=== PATIENT | female | born 1990 | race Caucasian/White ===

== ENCOUNTER → 2019-03-16 14:10 | Outpatient (CLI) | payer OTHER, SELFPAY ==
--- NOTE | 2019-03-16 | DI.US.S_ITS ---
PROCEDURE: US OB <= 14 WEEKS FETUS INDICATIONS: SIZE AND DATES OUTSIDE/PRIOR DATING DATA: Last menstrual period (LMP): 01/25/19. LMP-based estimated date of delivery (ARLYN): 11/01/19. First dating scan (date and location): 03/16/19. Estimated date of delivery (ARLYN) from first dating scan: 10/27/19. TECHNIQUE: Real-time scanning was performed of the fetus and maternal pelvic organs, with image documentation. Endovaginal scanning was also performed to better visualize the fetus and maternal ovaries. COMPARISON: None. FINDINGS: Embryo: [place]-rump length measures 15 mm corresponding to 7 weeks 6 days. heart rate measured 160 beats per minute. Measurement variability in dating: +/- 4 weeks by LMP, +/- 7 days by mean sac diameter (use before 6 weeks gestation if crown-rump length not able to be measured), +/- 5 days by crown-rump length (up to 8 weeks 6 days gestation), +/- 7 days by crown-rump length (up to 13 weeks 6 days gestation). Maternal organs: Ovaries within normal limits, with right corpus luteal cyst. Limited images through the kidneys demonstrate no hydronephrosis. IMPRESSION: 7 week 6 day single living IUP. Dictated by: Rayray LIMON Interpreted: Jadyn Waldrop MD on 03/16/2019 at 15:31 Approved by: Jadyn Waldrop M.D. on 03/16/2019 at 16:34
== END ==
PROVIDERS: Family Provider Family Medicine; PCP Family Medicine; Visit Provider Family Medicine
DX: Z34.91 Encounter for supervision of normal pregnancy, unspecified, first trimester (principal); Z3A.01 Less than 8 weeks gestation of pregnancy
CPT/HCPCS: 76801

== ENCOUNTER → 2019-06-07 11:01 | Outpatient (CLI) | payer OTHER, MEDICAID, SELFPAY ==
--- NOTE | 2019-06-07 | DI.US.S_ITS ---
PROCEDURE: US OB >= 14 WEEKS FETUS INDICATIONS: 20 WEEK ANATOMICAL SURVEY OUTSIDE/PRIOR DATING DATA: Last menstrual period (LMP): 01/25/19. LMP-based estimated date of delivery (ARLYN): 11/01/19. First dating scan (date and location): 03/16/19. Estimated date of delivery (ARLYN) from first dating scan: 10/27/19. TECHNIQUE: Real-time scanning was performed of the fetus, with image documentation and biometric measurements. Endovaginal scanning: No COMPARISON: [facility], OB <= 14 WEEKS FETUS, 03/16/2019, 14:21. FINDINGS: General: A single living intrauterine gestation is present. Presentation: Breech. Placenta: Placental position is posterior, without previa. Amniotic fluid index: 12.6 cm, normal range is 5-24 cm. heart rate: 147 beats per minute. Maternal cervical canal: 3.7 cm long. Normal lower limit is 2.5 cm. biometrics: Biparietal diameter: 18 weeks 6 days Head circumference: 18 weeks 6 days Abdominal circumference: 20 weeks 2 days Femur length: 19 weeks corres Estimated gestational age from initial scan: 19 weeks 5 days Composite gestational age from present scan: 19 weeks 3 days Estimated weight and percentile: 313 g; 52nd percentile Measurement variability for biometric dating: +/- 7 days from 14 weeks to 15 weeks 6 days gestation, +/- 10 days from 16 weeks to 21 weeks 6 days gestation, +/- 2 weeks from 22 weeks to 27 weeks 6 days gestation, +/- 3 weeks for 28 weeks gestation or later. weight reference: 4500 g or EFW >90/95% is considered macrosomia or large for gestational age. EFW <10% is small for gestational age. EFW 5% or less is considered intra-uterine growth restriction. Anatomic survey: Neuro: Ventricles are non-dilated at less than 10 mm. Cisterna magna is normal at 3-11 mm. Cerebellum is normal in size and morphology. Nuchal skin fold: Normal at less than 6 mm between 14-21 weeks gestational age. Face: Nose and lips, facial profile are normal. Spine: No evidence for spina bifida. Heart: 4-chambered heart is present, with normal ventricular outflow tracts. Diaphragm: Diaphragm is intact. Stomach: Left-sided stomach is present. Kidneys: No hydronephrosis. Normal is less than 5 mm in 2nd trimester, less than 7 mm in 3rd trimester. Cord: 3-vessel cord has orthotopic insertion. Bladder: Normal in size. Extremities: All 4 extremities identified. IMPRESSION: 1. Single living IUP redemonstrated interval growth is normal. 2. Normal anatomic survey. Dictated by: Rayray Freeman [facility] Interpreted: Martine Ventura MD on 06/07/2019 at 16:41 Approved by: Martine Ventura MD, PhD on 06/07/2019 at 17:12
== END ==
PROVIDERS: PCP Family Medicine; Visit Provider Family Medicine
DX: Z36.89 Encounter for other specified antenatal screening (principal); Z3A.19 19 weeks gestation of pregnancy
CPT/HCPCS: 76811

== ENCOUNTER → 2019-10-09 17:11 | Outpatient (ROUT) | payer OTHER, MEDICAID, SELFPAY | PROVIDERS: PCP Family Medicine; Visit Provider Family Medicine | DX: Z34.80 Encounter for supervision of other normal pregnancy, unspecified trimester (principal) | CPT/HCPCS: 87081 ==

== ENCOUNTER 2019-10-20 01:52 | Inpatient (IN) | payer OTHER, MEDICAID, SELFPAY ==
[2019-10-20 04:20] LABS: Add Manual Diff / Slide Review NO; Basophils Absolute Auto 100 /uL (0-100); Basophils Percent Auto 0.7 % (0-2); Eosinophils Absolute Auto 0 /uL (0-450); Eosinophils Percent Auto 0.4 % (2-4); Hematocrit 31.2 % (36-46); Hemoglobin 10.7 g/dL (12.0-16.0); Lymphocytes Absolute Auto 1600 /uL (1100-4500); Lymphocytes Percent Auto 20.6 % (25-40); Mean Corpuscular HGB Conc 34.2 % (30-36); Mean Corpuscular Hemoglobin 28.2 PG (26-34); Mean Corpuscular Volume 82.4 fL (80-100); Monocytes Absolute Auto 500 /uL (0-900); Monocytes Percent Auto 6.5 % (3-14); Neutrophils Absolute Auto 5700 /uL (1500-7000); Neutrophils Percent Auto 71.8 % (50-75); Platelet Count 85 X10^3/uL (150-400); Red Blood Cell Count 3.78 X10^6/uL (4.0-5.2); Red Cell Distribution Width 14.3 % (11.6-14.8); White Blood Cell Count 7.9 X10^3/uL (4.5-11.0)
[2019-10-20] MEDS: fentaNYL 100 MCG/2 ML INJ IV ×2 (04:26→05:48)
[2019-10-20] MEDS: LACTATED RINGERS 1,000 ML 100 ML IV ×3 (04:26→08:20)
[2019-10-20 04:35] VITALS: BP 89/51
[2019-10-20 07:24] LABS: COVID19 -Nasal RAPID Negative (Negative)
[2019-10-20] MEDS: OXYTOCIN PREMIX 30 UNIT/500 ML PLAST..BAG IV (09:24)
--- NOTE | 2019-10-20 09:30 | PM.OBPNLAB ---
Date/Time Date Patient Seen: 10/20/19 Time Patient Seen: 09:30 Pain Control Pain control: epidural Pelvic Exam Dilation (cm): 7 Effacement (%): 90 station: -2 Amniotic membrane status: Bulging Comments: AROM clear at 920 Contractions Date/Time contractions began: 10/19/19 at 2100 Contractions on admission: regular Monitor mode: External Contraction frequency (min): 3 Contraction pattern: Irregular Contraction intensity: Moderate Status status: Category l Heart Rate Baseline: 140 Monitor Accelerations: Present Monitor Decelerations: Absent Monitor Variability: Moderate Assessment and Plan Assessment: active labor Plan: begin patient augmentation Comments: uterine ctx spaced out with epidural will add pitocin arom clear at 920am GBS negative Covid negative Rh positive
[2019-10-20] MEDS: ACETAMINOPHEN 325 MG TABLET 650 MG PO (11:36)
--- NOTE | 2019-10-20 11:57 | PM.OBPNLAB ---
Pelvic Exam Dilation (cm): 7 Effacement (%): 90 station: -2 Amniotic membrane status: Bulging Contractions Monitor mode: External Contraction frequency (min): 3 Contraction pattern: Irregular Contraction intensity: Moderate Status status: Category l
--- NOTE | 2019-10-20 11:58 | PM.OBPNLAB ---
Date/Time Date Patient Seen: 10/20/19 Time Patient Seen: 11:58 Pain Control Pain control: epidural Comments: some sacral pain Pelvic Exam Dilation (cm): 9 Effacement (%): 100 station: -1 Amniotic membrane status: Ruptured Contractions Contractions on admission: regular Monitor mode: External Pitocin rate (mU/min): 0 Contraction frequency (min): 3 Contraction pattern: Regular Contraction intensity: Strong/Firm Status status: Category l Heart Rate Baseline: 135 Monitor Accelerations: Present Monitor Decelerations: Variable Monitor Variability: Moderate Assessment and Plan Assessment: active labor Plan: continuous present management Comments: once complete will begin pushing A positive GBS neg covid negative
--- NOTE | 2019-10-20 13:54 | PM.OBPRVD ---
Labor & Delivery Delivery date: 10/20/19 Intrapartal events: None Cervical ripening method: none Induction method: none Delivery augmentation: rupture of membranes and pitocin Delivery monitor: external FHT Route of delivery: L&D Laceration Description: Perineal - 2nd Degree Delivery repair: chromic Estimated blood loss (mL): 300 Anesthesia type: Epidural Narrative: Identifying data: 29-year-old at 30-,1/7 weeks estimated gestational age based on an EDC of 11/01/2019 based on LMP and confirmed by 7 week ultrasound presents to labor and delivery with spontaneous onset of uterine contractions approximately 5 hours prior to presentation. Patient was found to be 2 cm dilated 90% effaced. She was admitted for early labor. She had unremarkable . Stage I lasted 5 hours and 50 minutes Patient was admitted to the hospital she was given IV fentanyl a couple doses and then had progressive uterine contractions and cervical change in at 6 cm dilation at 6:20 a.m. this morning she was felt to be in active labor and requesting epidural. Epidural was placed and provided adequate analgesia. At approximately 9:20 a.m. artificial rupture membranes was performed to augment labor as the epidural had spaced out the uterine contractions and there was concern for possible occiput posterior. Rupture membranes was 3 hours and 43 minutes prior to delivery was clear fluid. Patient was comfortable with epidural though did require boluses and did have persistent tailbone or sacral pain that we were not able to completely alleviate. Patient was started on Pitocin but maximum was 1 mm and this was debrided. Because her contractions a 1 minutes. Therefore it Pitocin was discontinued. Had external tocometer was used throughout stage I. External heart monitor was used in showed baseline the 140s with accelerations to 170s 180s with moderate variability and only an occasional brief area Almaraz deceleration. With repositioning large amount of amniotic fluid were obtained. This was throughout stage I. [place] catheter was removed prior to beginning pushing. Patient had adequate urine output Stage II lasted 45 minutes Patient was noted to be complete at 12:15 p.m.. This was after having anterior lip for an hour or so. She was position from side to side with a peanut ball and finally went to complete. We began pushing at 12:18 p.m.. Patient pushed on her left side and then was switched to her right side to push and then was playing left lateral with a wedge and made good progress be bringing the baby down. She could feel her contractions coming and was able to alert us they were every 2-3 minutes. External heart monitor was 3 used throughout this stage in again baseline 130s with accelerations with contractions to the 170s 180s and moderate variability. Category 1 tracing. Baby was delivered in the left occiput anterior position. Mom was able to let the baby's head sit on her perineum. heart tracing continued to be category 1 even with this. Once the head was delivered the anterior shoulder was easily delivered and the posterior shoulder without difficulty and then the remainder of the baby and baby was placed on mom's chest. Baby was vigorous at delivery with Apgars of 9 at 1 minute and 9 at 5 minute. Weight is still pending. Stage III lasted 14 minutes Normal spontaneous vaginal delivery of a mild to moderately calcified placenta with a central cord insertion. Two arteries and having present. There was a small amount of amniotic membranes protruding from the cervix and these were easily removed. Pitocin was run in its soon as placenta started coming. Estimated blood loss was 300 cc. Uterus quickly firmed up. There were no vaginal or cervical tears. There was a small second-degree tear. There were no periurethral are labial tears. The second-degree tear was repaired in the usual fashion. At the time this dictation both mom and baby are in stable condition Plan for aftercare: routine care support gbs negative covid negative A positive
--- NOTE | 2019-10-20 15:00 | PM.OBHP.1 ---
OB HPI History of Present Condition Chief complaint: EVAL OF LABOR Narrative: Sugey Fajardo is a 29 year old female is a very pleasant at 3817 weeks estimated gestational age with the EDC of 11/01/2019 based on LMP and 10/27/2019 based on 7 week ultrasound. was unremarkable. Patient was actually seen in the office on the day that she went into labor. Patient presented to labor and delivery at 2:00 a.m. on 10/20/2019 with complaints of painful uterine contractions that were worsening that had started at 9:00 p.m. on 10/19/2019. No leaking of fluid and no change in discharge. Baby has been active. No abdominal pain. No foul-smelling discharge. No fever. No headaches. She has had slight swelling just over the last few days. Past medical history: 1. Migraine with aura 2. Anxiety 3. Thrombocytopenia of unclear etiology Current medications vitamins Allergies: No known drug allergies Past surgical history: Unremarkable Health-related behavior Patient does not use alcohol or tobacco. Patient does not use any illicit drugs. Family history: Mom with hypothyroidism and anxiety No congenital problems Sister may have inflammatory bowel disease Review of systems: No foul spine discharge. No fever No cough Baby has been active Contractions starting at 9:00 p.m. on 10/19/2019 Patient has had reflux throughout Past OB history 1. 08/24/2015 at 39 weeks gestation after 12 hour labor patient had a normal spontaneous vaginal delivery of a viable male infant weighing 6 lb 14 oz name hold in care was begun early on. Patient gained approximately 20 lb. Patient had about 12 visits. Blood pressures were always in the 80s to 94/40 4-62 Patient declines a clinical screening. Twenty week ultrasound showed normal anatomy GBS negative A positive, rubella immune Co bit test negative on admit Patient declined tetanus shot. Flu shot 05/02/2019. Glucose tolerance test 95. HIV GC chlamydia hepatitis B hepatitis-C syphilis all negative. Pap in HPV negative Evaluation Evaluation Laboratory results: Laboratory Tests 10/20/19 10/20/19 10/20/19 04:00 04:15 04:15 WBC 7.9 RBC 3.78 L Hgb 10.7 L Hct 31.2 L MCV 82.4 MCH 28.2 MCHC 34.2 RDW 14.3 Plt Count 85 L Neut % (Auto) 71.8 Lymph % (Auto) 20.6 L [place] % (Auto) 6.5 Eos % (Auto) 0.4 L Baso % (Auto) 0.7 Neut # (Auto) 5700 Lymph # (Auto) 1600 [place] # (Auto) 500 Eos # (Auto) 0 Baso # (Auto) 100 COVID-19 PCR Negative Blood Type A Positive Antibody Screen Negative [facility] Social History Smoking Status: Never smoker Meds Home Medications and Allergies Home Medications Medication Instructions Recorded Confirmed Type No Known Home Medications 10/20/19 10/20/19 History Allergies Allergy/AdvReac Type Severity Reaction Status Date / Time No Known Drug Allergies Allergy Verified 10/20/19 10:11 Review of Systems Review of Systems Narrative: Review of systems negative other than HPI Exam Vital Signs (past 8 hours): Afebrile vital signs are stable Patient is resting comfortably in hospital bed in no apparent distress HEENT unremarkable Neck: Supple without adenopathy Chest: Clear to auscultation without wheezes rhonchi or crackles Cor: Regular rate and rhythm without murmur Abdomen: Positive bowel sounds, gravid, vertex, estimated weight 6 and half to 7 lb Cervix 7 cm 90% effaced -2 station with intact bag of water that was artificially ruptured at 9:20 a.m. with clear fluid Extremities: Trace edema. DTRs intact Uterine contractions every 2-3 minutes with some coupling heart tone with baseline 140s with moderate variability with accelerations 10 160s 170s. Overall category 1 tracing Objective Labs Result Diagrams: 10/20/19 04:15 Labs: Laboratory Results - last 24 hr 10/20/19 10/20/19 10/20/19 04:00 04:15 04:15 WBC 7.9 RBC 3.78 L Hgb 10.7 L Hct 31.2 L MCV 82.4 MCH 28.2 MCHC 34.2 RDW 14.3 Plt Count 85 L Neut % (Auto) 71.8 Lymph % (Auto) 20.6 L [place] % (Auto) 6.5 Eos % (Auto) 0.4 L Baso % (Auto) 0.7 Neut # (Auto) 5700 Lymph # (Auto) 1600 [place] # (Auto) 500 Eos # (Auto) 0 Baso # (Auto) 100 COVID-19 PCR Negative Blood Type A Positive Antibody Screen Negative Assessment and Plan Assessment and Plan Assessment and Plan narrative: 29-year-old at 38-,1/7 weeks estimated gestational age in active labor with epidural providing adequate anesthesia. AROM performed clear fluid. Will augment with Pitocin. Expectant management GBS negative A positive Covidien negative
[2019-10-20 18:15] VITALS: TEMP 37.1
[2019-10-20] MEDS: IBUPROFEN 600 MG TABLET PO ×2 (18:15→23:52)
[2019-10-21] MEDS: ACETAMINOPHEN 325 MG TABLET 650 MG PO ×2 (04:03→15:36)
[2019-10-21] MEDS: IBUPROFEN 600 MG TABLET PO ×2 (05:38→15:37)
[2019-10-21 06:20] LABS: Add Manual Diff / Slide Review NO; Basophils Absolute Auto 0 /uL (0-100); Basophils Percent Auto 0.6 % (0-2); Eosinophils Absolute Auto 0 /uL (0-450); Eosinophils Percent Auto 0.5 % (2-4); Hematocrit 25.3 % (36-46); Hemoglobin 8.6 g/dL (12.0-16.0); Lymphocytes Absolute Auto 1300 /uL (1100-4500); Lymphocytes Percent Auto 17.1 % (25-40); Mean Corpuscular HGB Conc 34.1 % (30-36); Mean Corpuscular Volume 82.2 fL (80-100); Monocytes Absolute Auto 500 /uL (0-900); Neutrophils Absolute Auto 5900 /uL (1500-7000); Neutrophils Percent Auto 75.8 % (50-75); Platelet Count 80 X10^3/uL (150-400); Red Blood Cell Count 3.08 X10^6/uL (4.0-5.2); Red Cell Distribution Width 14.5 % (11.6-14.8); White Blood Cell Count 7.8 X10^3/uL (4.5-11.0)
[2019-10-21] MEDS: DOCUSATE 100 MG CAPSULE PO (10:09)
[2019-10-21] MEDS: PRENATAL VIT,CALC/IRON/FOLIC 1 TABLET 1 TAB PO (10:09)
--- NOTE | 2019-10-21 14:54 | PM.OBDS.1 ---
Discharge Providers Provider Date of admission: 10/20/19 01:52 Discharge Date: 10/21/19 Primary care physician: Racheal Williamson MD Consults: 10/21/19 13:50 Consult to Robot Technician Routine Comment: Discharge provider: Racheal Williamson MD Summary Time Spent with Patient Time attestation: Total time spent providing and/or coordinating discharge services: 30 minutes Patient was admitted to the hospital in active labor and underwent normal spontaneous vaginal delivery on hospital day 1. She had epidural for anesthesia. She was found have thrombocytopenia which has been a chronic thing but it was slightly worsened. She had no complications with epidural. She had no complications with the delivery and had normal bleeding with normal blood loss. She also runs with a low blood pressure and this continued but she was asymptomatic. Routine course and she was discharged home on hospital day 2. In stable condition. Discharge medications are [id number] vitamins, [id number] iron, [id number] Motrin 600 mg t.i.d. to q.i.d. and Colace 200 mg as needed. Objective Labs Result Diagrams: 10/21/19 06:05 Labs: Laboratory Results - last 24 hr 10/21/19 06:05 WBC 7.8 RBC 3.08 L Hgb 8.6 L Hct 25.3 L MCV 82.2 MCH 28.0 MCHC 34.1 RDW 14.5 Plt Count 80 L Neut % (Auto) 75.8 H Lymph % (Auto) 17.1 L [place] % (Auto) 6.0 Eos % (Auto) 0.5 L Baso % (Auto) 0.6 Neut # (Auto) 5900 Lymph # (Auto) 1300 [place] # (Auto) 500 Eos # (Auto) 0 Baso # (Auto) 0 Exam Vital Signs (past 8 hours): Appears slightly pale Afebrile vital signs are stable Chest: Clear to auscultation without wheezes rhonchi crackles Cor: Regular rate and rhythm without murmur Abdomen: Positive bowel sounds, soft, nontender, nondistended. Uterus is firm and at the umbilicus and is nontender Extremities show trace edema. DTRs 2+ bilaterally at the patella Skin no rash Discharge Plan Discharge Plan Patient Disposition: Home Discharge comment: Routine discharge instructions including pelvic rest and no heavy lifting as well signs symptoms of infection. Follow-up with me in 2 and 6 weeks. Discharge orders & Medications Prescriptions: No Action No Known Home Medications RF: 0 Follow up/Referrals: Racheal Williamson MD [Primary Care Provider] - Discharge Data Primary Care Provider: Racheal Williamson Attending Provider: Racheal Williamson Admit Date/Time: 10/20/19 01:52
[2019-10-21 14:58] VITALS: BP 89/51; TEMP 37.1
[2019-10-21 14:59] VITALS: BP 105/68; PULSE 77; RESP 17; TEMP 37.1
[2019-10-21 15:36] VITALS: TEMP 36.9
[2019-10-21 15:37] VITALS: TEMP 36.9
== END 2019-10-21 15:40 | disposition home or self-care (01) | DRG 560 ==
PROVIDERS: Admitting Provider Family Medicine; PCP Family Medicine; Referring Provider Family Medicine; Visit Provider Family Medicine
DX: O70.1 Second degree perineal laceration during delivery (principal); O99.12 Other diseases of the blood and blood-forming organs and certain disorders involving the immune mechanism complicating childbirth; D69.6 Thrombocytopenia, unspecified; Z3A.38 38 weeks gestation of pregnancy; Z37.0 Single live birth
CPT/HCPCS: 01967; 36415; 59050; 85025; 86850; 86900; 86901; 87635; G0378; G0379; J2590; J3010

== ENCOUNTER → 2024-05-04 16:42 | Outpatient (ROUT) | payer OTHER, SELFPAY ==
[2024-05-04 17:27] LABS: Influenza A - CEPHEID Flu A NEGATIVE (NEGATIVE); Influenza B - CEPHEID Flu B NEGATIVE (NEGATIVE); Respiratory Syncytial Virus Negative (Negative)
[2024-05-04 17:30] LABS: COVID-19 CEPHEID 4-PLEX PCR Negative (Negative)
== END ==
PROVIDERS: PCP Family Medicine; Visit Provider Family Medicine
DX: R05.1 Acute cough (principal)
CPT/HCPCS: 87635; 87400; 87420; 0241U